=== PATIENT | male | born 1945 | race Caucasian/White ===

== ENCOUNTER → 2021-12-20 15:27 | Outpatient (CLI) | payer OTHER, SELFPAY ==
--- NOTE | 2021-12-20 | DI.ECHO.S_ITS ---
[facility] +---------+ : : [address] [place] : : : : [id number] : : : : Phone: [phone]---------+ Echocardiogram Report + + :Name: SHEELA GARCIA Study Date: 12/20/2021 Height: 73 in : :[facility] ReadingLocation: Weight: 200 lb : : Gender: Male BSA: 2.2 m2 : :: 1945 Age: 76 yrs BP: 147/85 mmHg: :Reason For Study: RBBB : :Ordering Physician: TORO, : :CHRYSTAL Performed By: Goran Hanson : :Referring: CHRYSTAL ENGEL : + + Interpretation Summary Left ventricular systolic function remains normal with an estimated ejection fraction of 60 to 65% without any focal wall motion abnormality and appears slightly more dynamic compared to the previous study. Left ventricular size and wall thickness remain normal with probable normal diastolic function and normal filling pressures. The right ventricle remains normal and unchanged from the previous study. Right ventricular systolic pressure cannot be estimated but CVP is likely around 3 mmHg. Both atria normal in size and measure smaller compared to the previous study. There is mild aortic valve sclerosis but no significant functional valvular abnormality. Procedure: A two-dimensional transthoracic echocardiogram with color flow and Doppler was performed. The study quality was technically adequate. Comparison is made with the echocardiogram of 04/01/2011. Left Ventricle: The left ventricle appears normal in size, wall thickness, and systolic function without any focal wall motion abnormalities. The ejection fraction is estimated to be 60-65%. This is slightly more dynamic compared to the previous study. Diastolic parameters suggest probable normal left ventricular diastolic function and normal filling pressures. This is unchanged compared to the previous study. Right Ventricle: The right ventricle is normal in size and function. This is unchanged compared to the previous study. Atria: Both atria are normal in size. Both atria have mildly decreased in size since the prior echo exam. Right atrial volume index is 9.0 mL/mA?. The interatrial septum grossly appears intact with no obvious evidence for an atrial septal defect. Mitral Valve: The mitral valve is normal in structure and function. There is no mitral regurgitation noted. Aortic Valve: The aortic valve is trileaflet. The aortic valve is mildly calcified. The aortic valve opens well. There is no aortic valve stenosis. No aortic regurgitation is present. Tricuspid Valve: The tricuspid valve is normal in structure and function. No tricuspid regurgitation. Pulmonary artery pressures cannot be estimated because of the lack of a measurable TR jet velocity but the IVC suggests a CVP of around 3 mmHg. Pulmonic Valve: The pulmonic valve is normal in structure and function. There is no pulmonic valvular regurgitation. There is no significant valvular heart disease. Great Vessels: The aortic root is normal size. The dimensions of the ascending aorta are normal. The IVC is of normal diameter and collapses greater than 50% with a sniff. This suggests a low right atrial pressure of 3 mm Hg. Pericardium/ Pleura There is no pericardial effusion. There is no pleural effusion. MMode/2D Measurements & Calculations LVIDd: 5.0 cm LVOT diam: 2.1 cm LVIDs: 3.5 cm Ao root diam: 3.0 cm FS: 30.0 % asc Aorta Diam: 3.1 cm IVSd: 1.0 cm LVPWd: 0.90 cm LV liu. diameter/BSA (cm/m^2): 2.3 LV sys. diameter/BSA (cm/m^2): 1.6 LA dimension: 3.5 cm RA long axis: 4.8 cm LA A2 area: 21.6 cm2 LA A4 area: 16.9 cm2 LA length (vol): 5.7 cm LA vol: 54.5 ml LA vol index: 25.3 ml/m2 TAPSE_phl: 3.3 cm Doppler Measurements & Calculations Ao V2 max: 143.0 cm/sec LVOT Max Zander: 114.0 cm/sec Ao V2 mean: 94.1 cm/sec LV V1 max P.2 mmHg Ao max P.0 mmHg LV V1 VTI: 23.9 cm Ao mean P.0 mmHg BRIAN(I,D): 3.1 cm2 Ao V2 VTI: 27.1 cm BRIAN(V,D): 2.8 cm2 sev ratio: 0.88 BRIAN indexed to BSA (cm^2/m^2): 1.4 MV E max zander: 79.3 cm/sec SV(LVOT): 82.8 ml MV A max zander: 86.1 cm/sec MV E/A: 0.92 Med Peak E' Zander: 7.9 cm/sec E/E' med: 10.0 Lat Peak E' Zander: 12.1 cm/sec E/E' lat: 6.6 E/e' average: 8.3 MV dec time: 0.33 sec AV VR_phl: 0.80 MV P1/2t-pr_phl: 97.0 msec BRIAN(VTI)/BSA_phl: 1.4 Reading Physician:05:21 PM
== END ==
PROVIDERS: Referring Provider Specialist; Visit Provider Specialist
DX: I35.8 Other nonrheumatic aortic valve disorders (principal); I45.10 Unspecified right bundle-branch block; I25.2 Old myocardial infarction
CPT/HCPCS: 93306

== ENCOUNTER → 2022-07-11 11:18 | Outpatient (CLI) | payer OTHER, SELFPAY ==
[2022-07-11 12:37] LABS: COVID19 -Nasal RAPID Negative (Negative)
== END ==
PROVIDERS: Visit Provider Surgery
DX: Z01.812 Encounter for preprocedural laboratory examination (principal); Z20.822 Contact with and (suspected) exposure to COVID-19
CPT/HCPCS: 87635; C9803

== ENCOUNTER 2022-07-13 08:18 | Day surgery (SDC) | payer OTHER, SELFPAY ==
[2022-07-13] VITALS (8 sets, daily range): BP systolic 96–180; BP diastolic 63–98; PULSE 56–74; RESP 12–18; TEMP 36.1–36.4; O2SAT 93–98; BMI 26.4
--- NOTE | 2022-07-13 | PATH_ITS ---
[facility] Accession Number: [id number] No. of containers..02 Tissue . 01 Material submitted: . PART A: colon - CECUM POLYP PART B: colon - ASCENDING COLON POLYP . 01 Diagnosis: A. Cecum, Polyp, Biopsy: Colonic mucosa with no diagnostic abnormality, consistent with polypoid redundancy. Additional levels were examined. Negative for dysplasia and malignancy. . B. Ascending Colon, Polyp, Biopsy: Multiple fragments of tubular adenoma. MRV 07/18/2022 1246 Local . 01 Electronically signed: . Skye Steele MD, Pathologist NPI- [id number] . 01 Gross description: . Part A: CECUM POLYP: Received in formalin are 2 fragment(s) of olvera, soft tissue measuring 0.4 x 0.2 x 0.2 cm to 0.3 x 0.2 x 0.1 cm submitted entirely in 1 cassette(s) Part B: ASCENDING COLON POLYP: Received in formalin are multiple fragment(s) of olvera, soft tissue measuring 1.2 x 1.2 x 0.2 cm in aggregate submitted entirely in 1 cassette(s) /CPE 07/14/2022 0626 Local . 01 Pathologist provided ICD-10: D12.2 . 01 CPT . 542714, [id number] Specimen Comment: A courtesy copy of this report has been sent to [facility]ology Performed at: 01 [facility] [address] [place] [address] [address], [place], [place] [id number] MD Lawson Bolden MD Phone: [phone]
[2022-07-13] MEDS: LACTATED RINGERS 1,000 ML 150 ML IV (09:02)
--- NOTE | 2022-07-13 09:14 | PM.HP.1 ---
History of Present Illness History of Present Illness Chief complaint: Colonoscopy Narrative: History of colon polyps with last colonoscopy-10 years ago. No symptoms Patient History Family & Social History Social History: household members spouse Tobacco & Substance use: Smoking Status Former smoker alcohol intake current alcohol intake frequency other Substance Use Type does not use Meds Home Medications and Allergies Home Medications Medication Instructions Recorded Confirmed Type atorvastatin 40 mg tablet 40 mg PO DAILY 07/13/22 07/13/22 History glimepiride 2 mg tablet 2 mg PO DAILY 07/13/22 07/13/22 History metformin 500 mg tablet 500 mg PO BID 07/13/22 07/13/22 History metoprolol tartrate 25 mg tablet 25 mg PO BID 07/13/22 07/13/22 History Allergies Allergy/AdvReac Type Severity Reaction Status Date / Time No Known Drug Allergies Allergy Verified 07/13/22 08:39 Exam Vital Signs (past 8 hours): - 07/13/22 08:49 Temperature 97.5 F L Pulse Rate 74 Respiratory Rate 16 Blood Pressure 180/98 H Pulse Oximetry 98 Oxygen Delivery Method Room Air Oxygen Delivery Method Room Air Narrative Exam Narrative: Oropharynx free of lesions Chest clear to auscultation percussion Cardiac exam reveals no S3 or murmur Assessment & Plan Assessment & Plan narrative: Distant history of colon polyps with last colonoscopy 10-12 years ago negative. Need for follow-up colorectal screening. Risks benefits and alternatives have been explained. Time Spent With Patient Critical Care time: I spent a total of [] minutes of critical care time on this patient's care today; this time is exclusive of procedural time.
--- NOTE | 2022-07-13 09:15 | PM.OP.COLON ---
Operative Date/Time/Diagnoses Pre-op diagnosis: See indication and findings Procedure & Clinicians Study performed: Colonoscopy Indications: Screening. Last colonoscopy 10-12 years ago negative with a previous colonoscopy showing colon polyps Surgeon: Chi Dominique Procedure Notes Procedure in detail: After informed consent was obtained the patient was placed in left lateral decubitus position. The video colonoscope was introduced the rectum slowly advanced cecum. On slow withdrawal mucosa was carefully examined the. The scope was removed. The patient tolerated procedure well. Blood loss none Complications none Sedation propofol Findings 1. 6 mm polyp in the cecum Jumbo biopsy x2 and removed 2. 1.4 cm sessile polyp in the mid ascending colon. This was lifted with 2 cc of normal saline and using piecemeal technique resected. 3. Otherwise negative colonoscopy to cecum We will merely see what the pathology shows. This could be his last colonoscopy but if advanced pathology should have 1 more examination.
== END 2022-07-13 10:38 | disposition home or self-care (01) ==
PROVIDERS: PCP Family Medicine; Referring Provider Internal Medicine Gastroenterology; Visit Provider Internal Medicine Gastroenterology
PROC: 0DJD8ZZ Inspection of Lower Intestinal Tract, Via Natural or Artificial Opening Endoscopic (ICD-10-PCS; CPT 45378; principal; 2022-07-13 09:30)
DX: Z12.11 Encounter for screening for malignant neoplasm of colon (principal); Z86.010 Personal history of colon polyps; D12.2 Benign neoplasm of ascending colon
CPT/HCPCS: 45381; 45380; J2704